=== PATIENT | male | born 1980 | race Caucasian/White ===

== ENCOUNTER 2017-09-29 05:44 | Emergency (ER) | payer SELFPAY ==
[~2017-09-29] VITALS: Ht 182.9 cm; Wt 85.0 kg
[~2017-09-29 05:44] MED LIST: CYCL-36 PO; DICL50 PO
[2017-09-29 05:46] VITALS: BP 139/89; PULSE 80; RESP 16; TEMP 98.4; O2SAT 97
[2017-09-29] MEDS ORDERED: LOSA50TA PO (06:15)
[2017-09-29] MEDS ORDERED: METOCLOPRAMIDE HCL 10 MG/2 ML VIAL IV PUSH ONE (06:45)
[2017-09-29] MEDS ORDERED: DEXAMETHASONE SOD PHOS 20 MG/5 ML VIAL IV PUSH ONE (06:45)
[2017-09-29] MEDS ORDERED: SODIUM CHLOR 0.9% 1000 ML INJ 1,000 ML IV ONE (06:45)
[2017-09-29] MEDS ORDERED: KETOROLAC TROMETHAMINE 30 MG/ML (IVP) VIAL IV PUSH ONE (06:45)
[2017-09-29] MEDS ORDERED: diphenhydrAMINE HCL 50 MG/ML VIAL IV PUSH ONE (06:45)
[2017-09-29] MEDS ORDERED: BUTA1CAP PO (06:58)
[2017-09-29] MEDS ORDERED: REGL10TA5 PO (06:58)
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
== END 2017-09-29 07:58 | disposition home or self-care (01) ==
LOC: NEPE 05:44
DX: J11.1 Influenza due to unidentified influenza virus with other respiratory manifestations (principal); R11.2 Nausea with vomiting, unspecified; I10 Essential (primary) hypertension
CPT/HCPCS: 87804; 96374; 96375; 99284; J1100; J1200; J1885; J2765; J7030